=== PATIENT | female | born 1965 | race Caucasian/White ===

== ENCOUNTER 2016-10-30 18:38 | Inpatient (IN) | payer OTHER ==
[~2016-10-30] VITALS: Ht 176.5 cm; Wt 123.3 kg
[2016-10-30 19:15] VITALS: BP 132/77; PULSE 95; RESP 20; O2SAT 95
[2016-10-30] MEDS ORDERED: IBUP200C PO (19:29)
[2016-10-30 19:53] VITALS: BP 132/77; PULSE 95; RESP 20; O2SAT 95
--- NOTE | 2016-10-30 19:57 | NUR ---
Admit Received report at 1935 from Carolyn Floyd admit RN after Pt arrived to the floor at 1920 with belongings, and spouse at the bedside. report pain 4/10 throbbing pain her right index finger which was tolerable for her. right index finger is warm to touch and swollen. No IV access at this time. Oriented to room and call light. will continue to monitor.
[2016-10-30] MEDS ORDERED: Ondansetron 2 mg/mL 2 mL Inj IVPUSH PRN (20:20)
[2016-10-30] MEDS: Vancomycin Dose per Pharmacist XX SCH (20:20)
[2016-10-30] MEDS ORDERED: 0.9% Sodium Chloride 1,000 ML IV SCH (20:20)
[2016-10-30] MEDS ORDERED: Polyethylene Glycol (PEG) 17 Gm Powder PO PRN (20:20)
[2016-10-30] MEDS ORDERED: Alum-Mag Hydrox-Simeth 30 mL Suspension PO PRN (20:20)
--- NOTE | 2016-10-30 20:29 | PCM.HPMED ---
Subjective Date of Service Oct 30, 2016 Primary Provider: Admitting Physician: Margarito Mares MD Primary Care Physician: Trina Vega Attending Physician: Margarito Mares MD Admit Status: Direct Admit, 23-Hour Observation, Non-Telemetry Chief Complaint: Right hand redness and swelling History of Present Illness: Patient is a healthy female who cut her right hand 2nd finger on the scale of a lemon tree yesterday while gardening at work. The finger bacame painful and swollen. It improved over night and then became more painful and swollen today. No drainage, fevers or chills. No other problems. She can't flex or extend that finger but can the other ones as well as the thumb. Ortho wants Abx and NPO for possible surgery in AM. She denies any problems with breathing. No hand numbness. Review of Systems: All else reviewed and negative except as noted in H and P. Allergies Coded Allergies: meperidine (Verified Allergy, Unknown, 09/08/14) Home Medications None PMH None Surgical History Tubal ligation Family History Adopted. Social History Occupation: works with [employer] Hx Alcohol Use: Yes (very occasionally ) Hx Substance Use: No Smoking Status: Current Every Day Smoker Living Arrangement: with Family Exam Vital Signs Vital Sign - Last Date Time Temp Pulse Resp B/P Pulse Ox O2 Delivery O2 Flow Rate FiO2 10/30/16 19:15 36.4 95 20 132/77 95 Room Air Exam Alert and oriented , fluent speech Normal skull, nose and eas Normal mouth, no droop Normal neck, thyroid, no adenopathy Lungs clear with normal rate Heart reg with 3/6 SM (chronic) Abdomen soft, NT No leg edema No skin rash, ecchymosis Normal joints normal muscle strength right hand, 2nd finger swollen and the PIP in large and tender. Pain with passive extension. Lab and Diagnostics Labs pending Assessment & Plan 1. Right hand cellulitis verses 2nd digit septic tenosynovitis, POA. Ceftriaxone , vanco and NPO after midnoc. Ortho consulted for possible surgery in AM. 2. Tobacco dependence, POA. Declines patch. Full code. Obs admit, one night stay anticipated. Pain Evaluation: Adequate Pain Control Resuscitation Status: CPR: Attempt Resuscitation Time spent 35 min Margarito Mares MD Oct 30, 2016 20:29
[2016-10-30] MEDS ORDERED: Vancomycin Inj 2,000 MG in 0.9% Sodium Chloride 500 ML IV ONE (20:35)
--- NOTE | 2016-10-30 21:45 | PCM.CONORT ---
Subjective Surgeon Admitting Provider:Margarito Mares MD Attending Provider:Margarito Mares MD Primary Care Physician:Trina Vega Other Provider: Reason for Consultation: right 2nd finger pain and swelling Allergy Allergies: Coded Allergies: meperidine (Verified Allergy, Unknown, 09/08/14) Medications Ibuprofen (Ibuprofen) 200 Mg Capsule 200 MG PO QID PRN PRN For Pain (Reported) Last Taken: Unknown Dose on 10/30/16 History History of ENT Problems?: No Hx of Heart Problems?: Yes Cardiovascular History: Positive for:: Heart Murmur Denies:: Cardiac Surgery Chest Pain Congestive Heart Failure Edema Hypertension Irregular Heartbeat Pacemaker Thrombophlebitis Hx of Respiratory Problem?: Yes Respiratory History: Positive for:: Pneumonia (2011) Denies:: Asthma COPD Chest Surgery Dyspnea Tuberculosis Neurological History: Positive for:: Headaches ("once in a while") Hx of GI Problems?: No Gastrointestinal History: Denies:: Diverticulitis Gastroesphageal Reflux Gastrointestinal Bleeding Heartburn Hepatitis Hiatal Hernia Rectal Bleeding Hx of Problems?: Yes Genitourinary History: Positive for:: Urinary Tract Infection Female Hx: Denies:: Currently Endometriosis Pelvic Inflammatory Problems with Breasts? Hx Musculoskeletal Problems?: Yes Musculoskeletal History: Positive for:: Back Injury ("herniated disc") Denies:: Joint Replacement Musculoskeletal Trauma Other History/Comment Yasmine Mcfadden is a 50 year old female who reports right 2nd finger pain with swelling when she poked her finger on a thorn on a lemon tree yesterday afternoon while gardening at work. The finger bacame painful and swollen. She reports improved pain and swelling over night which then became more painful and swollen today. She denies any drainage, fevers or chills. She reports that she smokes 1/2-1 PPD. She reports that rest makes her pain better and movement makes it worse. She reports that cannot flex or extend her index. She went to urgent care and was admitted for IV Abx and possible I+D if not improved tomorrow. Hx of Psycho/Social Problems?: No Psycho Social History: Denies:: Anxiety Bipolar Disorder Hx Depression Suicide Attempt Hx Surgeries?: Yes (decor veins) Hx Any Other Health Problems?: Yes Other History: Denies:: Cancer Hospitalization Thyroid Disease History Blood Transfusions: Positive for:: Accept Blood Products? Denies:: Blood Transfusions Hx Diabetes: No Occupation: works with [employer] Alcohol Use: Yes (very occasionally )Hx Substance Use: No Smoking Status: Current Every Day Smoker Have You Smoked inLast 12 mo: YesApprox How Many Cigarettes/day: 1/2 to 3/4 pack per day Objective Exam Vital Signs & I/O Vital Sign- Last 8 Hours Date Time Temp Pulse Resp B/P Pulse Ox O2 Delivery O2 Flow Rate FiO2 10/30/16 19:15 36.4 95 20 132/77 95 Room Air Lab & Micro Results Laboratory Tests Test 10/30/16 21:30 Review of Systems: Constitutional: Negative, except as otherwise mentioned in the history above. Ophthalmologic: Negative, except as otherwise mentioned in the history above. Cardiovascular: Negative, except as otherwise mentioned in the history above. Respiratory: Negative, except as otherwise mentioned in the history above. Gastrointestinal: Negative, except as otherwise mentioned in the history above. Genitourinary: Negative, except as otherwise mentioned in the history above. Musculoskeletal: Negative, except as otherwise mentioned in the history above. Neurological: Negative, except as otherwise mentioned in the history above. Psychiatric: Negative, except as otherwise mentioned in the history above. Hematologic/Lymphatic: Negative, except as otherwise mentioned in the history above. Allergic/Immunologic: Negative, except as otherwise mentioned in the history above. H&P Surgical Exam Exam Musculoskeletal: CONST: WD,WN, NAD, A+OX3 OCULAR: EOMI, no conjunctivitis/icterus ENT: no deformities, scars or lesions CARDIAC: Pulse is regular. No cyanosis,clubbing,edema RESP: regular,unlabored MSK: normal light touch median, ulnar, radial, lateral antebrachial, axillary nerve distribution. Intact AIN, PIN, u, r, ax motor. C5-T1 intact, 2+ r/u pulse Right hand - scars, -discoloration/temp, + swelling at PIP, DIP, distal palm, - atrophy or asymmetry, - cascade sign, no global ligamentous laxity, TTP second finger, semiflexed posture, pain with extension, fusiform swelling ROM R Ext-flex Resisted Strength/Pain 15-40 MCP 4/5 / + 30-40 PIP 4/5 / + 0-0 DIP 4/5 / + 60 -60 Wrist 5/5 / - 50 deg of radioulnar arc + painful arc Additional Information xray of right hand: Soft tissue swelling in the proximal index finger which may be secondary to soft tissue contusion or infection. No opaque foreign body. No bony injuries. H&P Preop Plan Impression right 2nd finger swelling, likely flexor tenosynovitis Problems: Risks & Benefits * We have reviewed the risks and benefits as well as the alternatives to surgery. All questions were answered to the patient's satisfaction and a counseling note to that effect. The patient has provided informed consent. * I have counseled the patient regarding the deleterious effects that smoking during the perioperative period can have upon wound healing, infection rates, and the overall rate of complications. Plan plan for IV abx X 24 hours, will reassess with serial examinations for possible I+D if not improved CHARLENE [facility] discussed importance of smoking cessation recommend xrays of right hand and MRI with contrast continue medical management per primary please call with questions NPO after midnight for possible I+D in AM Conrad Hopkins MD Oct 30, 2016 21:45
--- NOTE | 2016-10-30 22:53 | PCM.PHAPRO ---
Progress Date of Service: Oct 30, 2016 Right hand redness and swelling Vancomycin Management Per Pharmacy: Indication: Right Hand Cellulitis vs. 2nd digit tenosynovitis Goal Trough: 10-15 mg/dL Labs: WBC: no lab SrCr: 0.92 mg/dL Est CrCl: ~80 mL/min Vitals: All stable Nephrotoxic medications: Advil PRN outpatient Micro: None Additional Abx: Rocephin Recommendation: Load: Vancomycin 2000 mg IV x 1 given in ED Maintenance: Vancomycin 1250 mg IV Q12h (~15 mg/kg adjusted body weight) Trough: Draw on 11/01 @ 1930 Pharmacy to continue to monitor Thank You, Debbi Wall, Pharm D. Debbi Wall Oct 30, 2016 22:53
[2016-10-30 23:15] VITALS: BP 125/72; PULSE 74; RESP 18; O2SAT 96
[2016-10-30] MEDS: cefTRIAXone Inj 1,000 MG in Dextrose 5% Minibag Plus 50 ML IV SCH (23:49)
[2016-10-31 02:44] VITALS: BP 96/54; PULSE 61; RESP 18; O2SAT 100
[2016-10-31 05:58] VITALS: BP 109/72; PULSE 72; RESP 18; O2SAT 96
--- NOTE | 2016-10-31 06:14 | NUR ---
Pain/ Activity pt had 4/10 throbbing pain on her right index finger which was tolerable for her. Right index finger is swollen, warm to touch, and unable to flex/extend it . pt has been ambulating multiple times to the restroom independently with IV pull. gait steady. pt has been NPO after mid-night. VS WNL during this morning. Will continue to monitor.
[2016-10-31] MEDS: Vancomycin Inj 1,250 MG in 0.9% Sodium Chloride 250 ML IV SCH ×2 (08:28→20:17)
[2016-10-31] MEDS: Vancomycin Dose per Pharmacist XX SCH (08:36)
[2016-10-31 08:40] LABS: BASOPHILS % (AUTO) 0.4 % (0-3); EOSINOPHILS % (AUTO) 1.3 % (0-5); MONOCYTES % (AUTO) 10.1 % (4-12); Mean Corpuscular Hemoglobin 30.1 pg (27.0-35.0); Mean Corpuscular Volume 91.2 fL (81-100); NEUTROPHILS % (AUTO) 44.7 % (40-74); Platelet Count 165 bil/L (150-400)
--- NOTE | 2016-10-31 08:42 | NUR ---
POC Surgery at bedside at 0830. To order MR of hand, labs and general diet. To continue IV antibiotics. Pt denies pain, just throbbing. Requesting nicotine patch. Hospitalist sharyn paged to notify of request at 0820.
--- NOTE | 2016-10-31 10:26 | PCM.PNORTH ---
Subjective Date of Service: Oct 31, 2016 Visit Information: Reason for Visit Right Flexor Tenosynovitis Surgery/Surgery Date Post-Op Day # Date of Admission: Oct 30, 2016 at 19:14 Hospital Day # Subjective Patient reports that she has some mildly improved symptoms since yesterday with decreased swelling, but persistent pain. We discussed IV antibiotic versus surgery and she has elected for for 24 hours of advised prior to surgical decision making given improved status Objective Exam Objective CONST: WD,WN, NAD, A+OX3 OCULAR: EOMI, no conjunctivitis/icterus ENT: no deformities, scars or lesions CARDIAC: Pulse is regular. No cyanosis,clubbing,edema RESP: regular,unlabored MSK: normal light touch median, ulnar, radial, lateral antebrachial, axillary nerve distribution. Intact AIN, PIN, u, r, ax motor. C5-T1 intact, 2+ r/u pulse Right hand - scars, -discoloration/temp, + swelling but decreased at PIP, DIP, distal palm, - atrophy or asymmetry, - cascade sign, no global ligamentous laxity, TTP second finger, semiflexed posture, pain with extension, fusiform swelling ROM R Ext-flex Resisted Strength/Pain 10-45 MCP 4/5 / + 25-45 PIP 4/5 / + 0-10 DIP 4/5 / + 60 -60 Wrist 5/5 / - 50 deg of radioulnar arc + painful arc xray of right hand: Soft tissue swelling in the proximal index finger which may be secondary to soft tissue contusion or infection. No opaque foreign body. No bony injuries. Vital Signs and I/O Vital Sign - Last Date Time Temp Pulse Resp B/P Pulse Ox O2 Delivery O2 Flow Rate FiO2 10/31/16 05:58 36.8 72 18 109/72 96 Room Air Intake and Output 10/30/16 10/30/16 10/31/16 Cumulative From/Thru 15:00 23:00 07:00 10/30/16 19:29 - 10/31/16 06:13 Intake Total 1528 ml 1528 ml Output Total 975 ml 975 ml Balance 553 ml 553 ml Intake Oral 400 ml 400 ml IV Total 1128 ml 1128 ml Output Urine Total 975 ml 975 ml # Bowel Movements 0 0 Lab & Micro Results Laboratory Tests Test 10/30/16 21:30 10/31/16 08:00 Hold Purple Top Tube Received (Received) Creatinine 0.91mg/dL (0.57-1.00) 0.75mg/dL (0.57-1.00) Hold [place] Top Tube Received (Received) White Blood Count 5.3th/mm3 (3.8-10.1) Red Blood Count 4.52mil/mm3 (3.90-5.20) Hemoglobin 13.6g/dL (12.0-15.6) Hematocrit 41.2% (35.0-46.0) Mean Corpuscular Volume 91.2fL (81-100) Mean Corpuscular Hemoglobin 30.1pg (27.0-35.0) Mean Corpuscular Hemoglobin Concent 33.0% (32.0-37.0) Red Cell Distribution Width 13.6% (12.3-15.4) Platelet Count 165bil/L (150-400) Neutrophils (%) (Auto) 44.7% (40-74) Lymphocytes (%) (Auto) 43.3% (14-46) Monocytes (%) (Auto) 10.1% (4-12) Eosinophils (%) (Auto) 1.3% (0-5) Basophils (%) (Auto) 0.4% (0-3) Sodium Level 139mEq/L (134-144) Potassium Level 4.4mEq/L (3.5-5.2) Chloride Level 106mEq/L (97-108) Carbon Dioxide Level 19mmol/L (18-29) Blood Urea Nitrogen 9mg/dL (6-24) Estimat Glomerular Filtration Rate 117mL/min (>59) Glucose Level 93mg/dL (60-99) Calcium Level 9.1mg/dL (8.5-10.1) Total Bilirubin 0.6mg/dL (0.0-1.2) Aspartate Amino Transf (AST/SGOT) 20U/L (0-50) Alanine Aminotransferase (ALT/SGPT) 27U/L (0-32) Alkaline Phosphatase 76U/L (25-150) Total Protein 6.6g/dL (6.4-8.4) Albumin 3.7g/dL (3.4-5.0) Microbiology 10/30/16 Blood Culture, Received Pending 10/31/16 MRSA (PCR) - Preliminary, Resulted Result Diagram: 10/31/16 0800 10/31/16 0800 Assessment & Plan Impression right 2nd finger swelling, likely flexor tenosynovitis Problems: Plan plan for IV abx X 24 hours, will reassess with serial examinations for possible I+D if not improved tomorrow NWB RUE regular diet today discussed importance of smoking cessation recommend MRI with contrast, labs ordered continue medical management per primary please call with questions NPO after midnight for possible I+D tomorrow Resuscitation Status: CPR: Attempt Resuscitation Conrad Hopkins MD Oct 31, 2016 10:21
--- NOTE | 2016-10-31 10:51 | NUR ---
Activity Pt up ambulatory in room, tolerating well.
[2016-10-31 15:18] VITALS: BP 116/77; PULSE 71; RESP 20; O2SAT 100
--- NOTE | 2016-10-31 15:27 | DRSVH ---
PROCEDURE: MRI HAND RIGHT WITH AND WITHOUT CONTRAST ([id number]) INDICATIONS: right 2nd finger swelling TECHNIQUE: Noncontrast coronal T1 spin echo and T2 fast spin echo with fat saturation, axial proton density fast spin echo and T2 fast spin echo with fat saturation, axial T1 spin echo with fat saturation, sagitta l T1 spin echo and STIR through the hand and fingers. Post-contrast axial, coronal, and sagittal T1 spin echo through the hand and fingers. COMPARISON: [facility], CR, XR FINGER(S) RT 2VW, 10/30/2016, 16:37. FINDINGS: Image quality: Diagnostic. Bones: There is no acute fracture or dislocation involving the osseous structures of the right hand. No suspicious osseous lesions or suspicious osseous enhancement is evident. Specifically, there is no abnormal enhancement of the bone involving the index finger. There are mild to moderate degenerat aminata changes noted involving the wrist joint, which are not well characterized on this examination and more prominent involving the basal joints of the thumb. Additional degenerative changes involving t he metacarpal phalangeal joints of the hand are noted. Evaluation of the interphalangeal joints is s uboptimal on this study. Soft tissues: Prominent soft tissue edema is noted involving the index finger. There are no loculate d or drainable fluid collections present. Corresponding soft tissue enhancement at the site of the e melonie is present. The soft tissue edema is most pronounced at the proximal interphalangeal joint of t he index finger along the volar surface. The underlying flexor tendon is intact, but contains a smal l amount of fluid and demonstrates mild to moderate enhancement of the synovium on the postcontrast i mages. The extensor tendons of the index finger are within normal limits. The ligamentous structure s of the index finger and not adequately evaluated on this examination, but are probably intact. The remainder of the soft tissues of the hand are otherwise within normal limits. There are no soft tissue masses or suspicious enhancement. The remainder of the flexor and extensor tendons of the rogers d are within normal limits. Please note that the ligamentous structures are not well characterized o n this study. IMPRESSION: 1. Moderate right index finger flexor digitorum profundus and superficialis tenosynovitis without si gnificant tearing of these tendons. 2. Subcutaneous edema about the right index finger may represent cellulitis. There is no abscess or drainable fluid collection. 3. No evidence of osteomyelitis. 4. Degenerative changes of the wrist and hand are more prominent involving the basal joints of the t humb. Dictated by: Reji Mehta M.D. on 10/31/2016 at 14:19 Approved by: Reji Mehta M.D. on 10/31/2016 at 14:26
--- NOTE | 2016-10-31 15:50 | NUR ---
Social Work Note - Screening: D/A: The Pt is a 50 y/o female that was admitted under observation status for right flexor tenosynovitis. Her PCP is STEPHANIE Vega and her insurance is listed as the [facility]. EMR reviewed. SW met with the Pt and her to explain role and discuss discharge planning, SW telephone written on white board. The Pt lives independently with her family in [place]. The Pt does not have an Advanced Directive, declined paperwork. Ortho involved. The Pt is currently on 24 hours of IV Abx. Surgery to re-evaluate tomorrow. The Pt denies any needs at this time. SW to follow if needs arise. P: The Pt is not medically stable for discharge. The Pt is currently on 24 hours of IV Abx, Surgery to re-evaluate tomorrow. Coretta Randolph MSW Certified Lactation Educator MIKE Bynum
--- NOTE | 2016-10-31 18:21 | PCM.PNMED ---
Subjective Date of Service Oct 31, 2016 Subjective No complaints chest pain, dyspnea, nausea vomiting. Pain in her and is controlled she feels like the swelling is a little bit better Exam Vital Signs Vital Sign - Last Date Time Temp Pulse Resp B/P Pulse Ox O2 Delivery O2 Flow Rate FiO2 10/31/16 15:18 36.6 71 20 116/77 100 Room Air Intake and Output 10/30/16 10/30/16 10/31/16 Cumulative From/Thru 15:00 23:00 07:00 10/30/16 19:29 - 10/31/16 06:13 Intake Total 1528 ml 1528 ml Output Total 975 ml 975 ml Balance 553 ml 553 ml Intake Oral 400 ml 400 ml IV Total 1128 ml 1128 ml Output Urine Total 975 ml 975 ml # Bowel Movements 0 0 Exam Gen.- A+ O 3 no apparent distress. Obese female lying in bed Eyes- open conjunctiva clear, pupils equal nonicteric ENT- ears normal, nose normal Neck- supple/trach midline CVS-normal rate Lungs-normal right nonlabored no accessory muscles GI-generous pannus Musc- moving 4 no obvious deformity- left hand is markedly edematous but not particularly erythematous reports it has improved Neuro- cranial nerves II through XII intact to gross examination, nonfocal Skin- warm and dry, no rashes/lesions/wounds noted Psych- pleasant and appropriate, Lab and Diagnostics Result Diagram: 10/31/16 0800 10/31/16 0800 Assessment & Plan 50-year-old female with a cut on her hand otherwise healthy. 10/31 orthopedics is following, continuing antibiotics we will reevaluate and decide whether to do I&D 11/01 in the evening. No changes to management. 1. Right hand cellulitis verses 2nd digit septic tenosynovitis, POA. Ceftriaxone , vanco and NPO after midnoc. Ortho consulted for possible surgery in AM. 2. Tobacco dependence, POA. Declines patch. Full code. Resuscitation Status: CPR: Attempt Resuscitation Faisal Matson MD Oct 31, 2016 18:21
--- NOTE | 2016-10-31 19:17 | NUR ---
Status 1830 Pt stable, continues to elevate right hand. Ambulating and eating/drinking w/o issue. To continue to monitor.
[2016-10-31] MEDS: cefTRIAXone Inj 1,000 MG in Dextrose 5% Minibag Plus 50 ML IV SCH (21:49)
[2016-10-31 21:55] VITALS: BP 102/61; PULSE 77; RESP 18; O2SAT 98
[2016-11-01] VITALS (10 sets, daily range): BP systolic 108–126; BP diastolic 63–79; PULSE 67–88; RESP 14–18; O2SAT 93–100
--- NOTE | 2016-11-01 05:24 | NUR ---
Swelling/Activity pt state right index finger had improvement in swelling during the day time yesterday, but swelling back again during the evening. This morning swelling looks better than earlier in the shift. pt able to mildly flex and extend that finger. pain throbbing only, which was tolerable for pt. ABX given per order. pt has been ambulating to the bathroom independently. gait steady. pt has been NPO after mid-night. will continue to monitor.
[2016-11-01] MEDS: Vancomycin Dose per Pharmacist XX SCH (07:52)
[2016-11-01] MEDS: Vancomycin Inj 1,250 MG in 0.9% Sodium Chloride 250 ML IV SCH ×2 (08:01→20:26)
--- NOTE | 2016-11-01 09:45 | PCM.PNORTH ---
Subjective Date of Service: Nov 01, 2016 Visit Information: Reason for Visit Right Flexor Tenosynovitis Surgery/Surgery Date Post-Op Day # Date of Admission: Oct 30, 2016 at 19:14 Hospital Day # Subjective Found patient awake and alert and sitting up in bed in no acute distress. Discussed her condition at the right hand and she states that it is still painful and she does have reduced range of motion on examination with tenderness at the volar surface of the right index finger. Postop General: No Complaints, No Shortness of Breath, No Chest Pain, Good Appetite Objective Exam Objective Alert and oriented 3 and pleasant. No dressing in place at the right hand. No obvious wound at the injury point in the volar crease of the right index PIP joint. Reduced range of motion in flexion and extension at the index finger with general swelling about the hand. No erythema is noted. Tenderness to palpation about the volar index finger on the right hand. Vital Signs and I/O Vital Sign - Last Date Time Temp Pulse Resp B/P Pulse Ox O2 Delivery O2 Flow Rate FiO2 11/01/16 06:08 36.4 67 18 109/63 99 Room Air Intake and Output 10/31/16 10/31/16 11/01/16 Cumulative From/Thru 15:00 23:00 07:00 10/30/16 19:29 - 11/01/16 06:14 Intake Total 550 ml 631 ml 2709 ml Output Total 975 ml Balance 550 ml 631 ml 1734 ml Intake Oral 300 ml 700 ml IV Total 550 ml 331 ml 2009 ml Output Urine Total 975 ml # Voids 3 3 # Bowel Movements 0 0 Lab & Micro Results Microbiology 10/30/16 Blood Culture - Preliminary, Resulted NO GROWTH AFTER 24 HOURS 10/31/16 MRSA (PCR) - Preliminary, Resulted Result Diagram: 10/31/16 0800 10/31/16 0800 General Appearance: Alert, Oriented X3, Cooperative, No Acute Distress Extremities: No Compartment Syndrom Noted, Thigh & Calf Soft/Nontender Postop Sensory Motor: Distal Motor Intact, Movement in Toes, Distal Sensation Intact Catheters: None Assessment & Plan Impression Patient is a very pleasant 50-year-old female who has offered a puncture wound at the right index finger volar surface of the PIP crease from a lemon tree. Patient has swelling and tenderness in this area with reduced range of motion at the finger. She was admitted to the hospital for consideration of an infection and will undergo an I&D of this area today on 10/05/2029. Problems: Plan Post admission day #2 from right index finger lower PIP crease puncture wound from a lemon tree. Continue nonweightbearing at the right upper extremity. Continue nothing by mouth at this time with anticipated I&D of the right index finger today on 11/01/[address] Bautista entered the room while I was seeing patient today and performed an examination and determined that she will in fact undergo an I&D today around noon. Postoperative plans per Dr. Rao: PEDRO will discontinue wick in surgical wound on 11/02/2016 and replace splint with a Xeroform and light gauze dressing at the index finger only. Occupational therapy will be ordered for the patient if she remains in house. Discharge maybe accomplished on postoperative day #1 if patient is doing well. DC on by mouth antibiotics, Keflex 500 4 times a day. DC on by mouth pain medication as needed. Wound may be soaked at home with a mixture of peroxide and saline for 15 minutes daily 3 days postop. Ice and elevate for comfort. Follow-up with Dr. Rao next week on Saturday for wound check. Resuscitation Status: CPR: Attempt Resuscitation Hansel Epperson PA-C Nov 01, 2016 09:45
--- NOTE | 2016-11-01 10:18 | CONS ---
[address] [address] CONSULTATION REPORT PATIENT: DEN MENDEZ : 1965 MR#: [id number] ADMIT: 10/30/2016 JOB ID: [id number] DATE OF SERVICE: 11/01/2016 ORTHOPEDIC CONSULT: CHIEF COMPLAINT: Right index finger pain and swelling. HISTORY OF PRESENT ILLNESS: This is a pleasant 50-year-old, [id number] female that presents with a 2-1/2-day history of right index finger pain and swelling. The patient states this started about Saturday afternoon. She got to the volar aspect of her index finger stuck on a scale of a lemon tree while she was gardening. Finger progressively became increasingly painful and swollen. She eventually presented to the hospital and was started on IV antibiotics to see if there was resolution with 24 hours of IV antibiotics. She did have resolution of the swelling but then it started to recur yesterday evening. She was earlier seen and consulted by Conrad Hopkins MD, and consented for possibility of proceeding with surgery today for irrigation and debridement of the right index finger. The case was discussed with me and transferred over to my care for the surgical procedure. I saw the patient. She currently demonstrates only pain and swelling to the index finger and again, demonstrated that it had worsened overnight. She has very limited range of motion. She denies any paresthesias. She denies any constitutional symptoms including any fever, sweats, or chills. PAST MEDICAL HISTORY: Negative. PAST SURGICAL HISTORY: Tubal ligation, left de Quervain release, mass excised from the face. SOCIAL HISTORY: The patient does smoke a half pack of cigarettes a day. Denies alcohol or illicit drug use. She works in [employer] with [employer]. FAMILY HISTORY: Noncontributory. She is adopted. MEDICATIONS: 1. Ibuprofen. 2. No routine home medications. ALLERGIES: DEMEROL. REVIEW OF SYSTEMS: The patient denies any fevers, sweats, chills, chest pain, shortness of breath, nausea, vomiting, diarrhea. Complains mainly of right index finger pain and swelling as described in history of present illness. PHYSICAL EXAMINATION: General: The patient is alert, in no apparent distress. HEENT: Normocephalic, atraumatic. Extraocular movements intact. Nares patent. Lungs: No audible wheezes. No overt signs of respiratory distress. Neuro: Cranial nerves 2-12 are intact. Extremities: On gross observation of the patient's right index finger, there is a healed small puncture wound along the volar aspect of the PIP joint. There is circumferential swelling to the index finger that extends to the tip. There is tenderness to palpation along the flexor tendon sheath starting at the level of the A1 brandi to about the distal interphalangeal joint. The finger is held in a slightly flexed position. Any passive extension reproduces pain volarly. The finger is perfused, and she does demonstrate intact sensation. DIAGNOSTIC STUDIES: A CBC was obtained on October 31, 2016. Demonstrates a normal white count. The patient did have an MRI also obtained yesterday that demonstrated some tenosynovitis to the index finger flexor digitorum profundus and superficialis, with no localized abscess appreciated. IMPRESSION: Right index finger cellulitis, with questionable flexor tenosynovitis. Discussed with the patient, as well as her , the risks, benefits and indications to proceed with an incision and drainage of the right index finger, as her symptoms have started to worsen despite being on antibiotics for over 24 hours. They understood the risks include, but not limited to, neurovascular injury, tendon injury, failure to resolve the infection, stiffness, persistent pain, all of which may require further intervention. The patient had all questions answered. Consent was signed and placed in the chart. The patient will have the surgery later this afternoon. She will have a splint and a drain placed, and have the splint and drain both pulled on postoperative day #1. I will have her start working with Occupational Therapy at that time. If she demonstrates improvement with clinical findings, she can be discharged home with a pair of p.o. antibiotics. Otherwise, if there is very minimal improvement, we will wait until definitive cultures and sensitivities return prior to transitioning the patient to p.o. antibiotics and discharging her home. Once she is discharged, I will see her back next week either on Saturday or Saturday in the office for a wound recheck.
[2016-11-01] MEDS ORDERED: EPHEDrine Sulfate 50 mg/mL Inj IVPUSH PRN (12:25)
[2016-11-01] MEDS ORDERED: Dexamethasone 4 mg/mL Inj IVPUSH PRN (12:25)
[2016-11-01] MEDS ORDERED: Lactated Ringer's 1,000 ML IV SCH (12:25)
[2016-11-01] MEDS ORDERED: Phenylephrine 10,000 mCg/mL Inj IVPUSH PRN (12:25)
[2016-11-01] MEDS ORDERED: Lactated Ringer's 1,000 ML IV ONE (12:25)
[2016-11-01] MEDS ORDERED: Lactated Ringer's 500 ML IV PRN (12:25)
[2016-11-01] MEDS ORDERED: Ondansetron 2 mg/mL 2 mL Inj IVPUSH PRN (12:25)
[2016-11-01] MEDS ORDERED: fentaNYL-PF 50 mCg/mL 2 mL Inj IVPUSH PRN (12:25)
[2016-11-01] MEDS ORDERED: MetoCLOpramide 5 mg/mL 2 mL Inj IVPUSH PRN (12:25)
--- NOTE | 2016-11-01 12:25 | PCM.HPANE ---
Patient Data Surgeon Admitting Provider:Margarito Mares MD Attending Provider:Margarito Mares MD Primary Care Physician:Trina Vega Other Provider: Reason for Visit Right Flexor Tenosynovitis Ht/WT & BMI Height (Feet): 5 Height (Inches): 9.50 Weight (Kilograms): 123.300 Body Mass Index 39.36 Allergies Coded Allergies: meperidine (Verified Allergy, Unknown, 09/08/14) Past Anesthesia History Anesthesia History: Positive for:: Anesthesia Reactions ( she state " I tought something run over me ") Diabetes History Hx Diabetes?: No MRSA MRSA: No Medications Reported Medications Ibuprofen 200 Mg [id number] Mg PO QID PRN For Pain Ref 0 10/30/16 History History of ENT Problems?: No Hx of Heart Problems?: Yes Cardiovascular History: Positive for:: Heart Murmur Denies:: Cardiac Surgery Chest Pain Congestive Heart Failure Edema Hypertension Irregular Heartbeat Pacemaker Thrombophlebitis Hx of Respiratory Problem?: Yes Respiratory History: Positive for:: Pneumonia (2011) Denies:: Asthma COPD Chest Surgery Dyspnea Tuberculosis Neurological History: Positive for:: Headaches ("once in a while") Hx of GI Problems?: No Gastrointestinal History: Denies:: Diverticulitis Gastroesphageal Reflux Gastrointestinal Bleeding Heartburn Hepatitis Hiatal Hernia Rectal Bleeding Hx of Problems?: Yes Genitourinary History: Positive for:: Urinary Tract Infection Female Hx: Denies:: Currently Endometriosis Pelvic Inflammatory Problems with Breasts? Hx Musculoskeletal Problems?: Yes Musculoskeletal History: Positive for:: Back Injury ("herniated disc") Denies:: Joint Replacement Musculoskeletal Trauma Hx of Psycho/Social Problems?: No Psycho Social History: Denies:: Anxiety Bipolar Disorder Hx Depression Suicide Attempt Hx Surgeries?: Yes (decor veins) Hx Any Other Health Problems?: Yes Other History: Denies:: Cancer Hospitalization Thyroid Disease History Blood Transfusions: Positive for:: Accept Blood Products? Denies:: Blood Transfusions Hx Diabetes: No Occupation: works with [employer] Alcohol Use: Yes (very occasionally )Hx Substance Use: No Smoking Status: Current Every Day Smoker Have You Smoked inLast 12 mo: YesApprox How Many Cigarettes/day: 1/2 to 3/4 pack per day Stop/Bang Treated for Sleep Apnea?: No S-Snoring: Do You Snore Loudly: Yes T-Tired: feel tired, fatigued: Yes O-Obsered: Observed not breath: No P-Blood Pressure: treated: No B- Body Mass Index > 35 kg/m2: Yes A- Age over 50: Yes N- Neck Large Circumference: No G- Gender Male: No GIANNA Total Score: 4 Risk Assessment Category Category 1A: Patient has history of documented sleep apnea, and HAS NOT received any narcotic, sedative or anesthesia administration during this stay. Category 1B: Patient has history of documented sleep apnea, and HAS received any narcotic , sedative or anesthesia administration during this stay Category 2: Patient has SUSPECTED Obstructive Sleep Apnea, and HAS received any narcotic , sedative or anesthesia administration during this stay. Category 3: Patient has SUSPECTED Obstructive Sleep Apnea and HAS NOT received narcotic, sedative or anesthesia administration during this stay. Category 4: Outpatient in Procedural Areas with known sleep apnea or who screen positive for High Risk via the STOP/BANG questionnaire. Exam Exam Vital Signs Vital Signs Date Time Temp Pulse Resp B/P Pulse Ox O2 Delivery O2 Flow Rate FiO2 11/01/16 06:08 36.4 67 18 109/63 99 Room Air General Appearance: Alert HEENT/AIRWAY: MP 2 Lungs: Clear to Auscultation Heart: Exam Unremarkable Meds/Labs/Diagnostics Labs Test 10/30/16 21:30 10/31/16 08:00 Hold Purple Top Tube Received (Received) Hold Morelos Top Tube Received (Received) White Blood Count 5.3th/mm3 (3.8-10.1) Red Blood Count 4.52mil/mm3 (3.90-5.20) Hemoglobin 13.6g/dL (12.0-15.6) Hematocrit 41.2% (35.0-46.0) Mean Corpuscular Volume 91.2fL (81-100) Mean Corpuscular Hemoglobin 30.1pg (27.0-35.0) Mean Corpuscular Hemoglobin Concent 33.0% (32.0-37.0) Red Cell Distribution Width 13.6% (12.3-15.4) Platelet Count 165bil/L (150-400) Neutrophils (%) (Auto) 44.7% (40-74) Lymphocytes (%) (Auto) 43.3% (14-46) Monocytes (%) (Auto) 10.1% (4-12) Eosinophils (%) (Auto) 1.3% (0-5) Basophils (%) (Auto) 0.4% (0-3) Sodium Level 139mEq/L (134-144) Potassium Level 4.4mEq/L (3.5-5.2) Chloride Level 106mEq/L (97-108) Carbon Dioxide Level 19mmol/L (18-29) Blood Urea Nitrogen 9mg/dL (6-24) Creatinine 0.75mg/dL (0.57-1.00) Estimat Glomerular Filtration Rate 117mL/min (>59) Glucose Level 93mg/dL (60-99) Calcium Level 9.1mg/dL (8.5-10.1) Total Bilirubin 0.6mg/dL (0.0-1.2) Aspartate Amino Transf (AST/SGOT) 20U/L (0-50) Alanine Aminotransferase (ALT/SGPT) 27U/L (0-32) Alkaline Phosphatase 76U/L (25-150) Total Protein 6.6g/dL (6.4-8.4) Albumin 3.7g/dL (3.4-5.0) Plan Impression Patient chart reviewed, patient interviewed and anesthestic plan with risks, benefits, and alternatives discussed, and informed consent obtained. ASA Physical Status: ASA2 Mod Systemic Disease Anesthetic Support Modalities: Hemodynamic Monitoring Anesthetic Plan: GA Bene/Risks/Altern/Consents: Yes HP Complete Prior to Induction: Yes Rey Castanon MD Nov 01, 2016 12:24
[2016-11-01] MEDS ORDERED: diphenhydrAMINE 25 mg Capsule PO PRN (12:50)
[2016-11-01] MEDS ORDERED: Lidocaine 1%-Epi 1:100,000 20 mL Inj NERVEBLOCK ONE (12:59)
--- NOTE | 2016-11-01 13:38 | PCM.ANEP1 ---
Post Anesthesia Phase 1 PACU Phase 1 Assessment Date of Service: Oct 30, 2016 Vital Signs Vital Signs Date Time Temp Pulse Resp B/P Pulse Ox O2 Delivery O2 Flow Rate FiO2 11/01/16 06:08 36.4 67 18 109/63 99 Room Air Anesthetic Administered: GA Level of Alertness: Awake, talking CELESTE's with Equal Strength: Yes Pain: No Nausea or Vomiting: No Airway Device: Oralpharangeal Airway Oxygen Delivery: Simple Mask Lungs: Clear to Auscultation Dermatome Level: Full Sensation Early,Rey Callejas MD Nov 01, 2016 13:38
--- NOTE | 2016-11-01 13:38 | PCM.ANEP2 ---
Post Anesthesia Evaluation ASA/CMS Post Anesthesia VS in Patient's Normal Range?: Yes Resp Stable; Airway Patent?: Yes CV Function & Hydration Stable: Yes Mental Status Recovered?: Yes Pain control Satisfactory?: Yes N/V Control Satisfactory?: Yes Early,Rey Callejas MD Nov 01, 2016 13:38
[2016-11-01] MEDS: HYDROmorphone 1 mg/mL Inj IVPUSH PRN ×2 (13:42→13:52)
[2016-11-01] MEDS ORDERED: Propofol 10,000 mCg/mL 20 mL Inj ONE (13:59)
[2016-11-01] MEDS ORDERED: fentaNYL-PF 50 mCg/mL 2 mL Inj ONE (13:59)
[2016-11-01] MEDS ORDERED: Ondansetron 2 mg/mL 2 mL Inj ONE (13:59)
--- NOTE | 2016-11-01 14:34 | NUR ---
Post op/ arrival to unit Pt arrived on the unit at 1415. She was able to stand and transfer herself to bed with a 1 pa contact guard assist. She reports feeling dizzy. She was assisted to the bedside commode and voided. Vital signs were checked, oxygen saturation was 88% on RA, encouraged deep breathing and put pt on 2L supplemental O2. Pt is saline locked. R hand had dressing on and was jose martin wrapped, dressing was clean/dry/intact. Pt reports pain "5/10" in her R hand and describes it as "throbbing". Will administer pain medication and continue to monitor.
[2016-11-01] MEDS: HYDROcodone-APAP 5-325 mg Tablet PO PRN ×3 (14:42→22:40)
--- NOTE | 2016-11-01 14:49 | OP ---
[address] [address] OPERATIVE REPORT PATIENT: DEN MENDEZ : 1965 MR#: [id number] ADMIT: 10/30/2016 JOB ID: [id number] DATE OF SURGERY: 11/01/2016 PREOPERATIVE DIAGNOSIS(ES): Right index finger flexor tenosynovitis. POSTOPERATIVE DIAGNOSIS(ES): Right index finger flexor tenosynovitis. PROCEDURE: Right index finger irrigation and debridement with tenosynovectomy. SURGEON: Daniel Rao DO ANESTHESIA: General. INDICATIONS: The patient is a pleasant 50-year-old female that sustained a puncture wound to the volar aspect of her index finger a few days prior while at work, working outside doing some pruning. She progressively has some increased swelling and pain with limited motion to the index finger. She presented to the hospital and started on 24 hours of IV antibiotics. She did have some improvement, but then it progressively worsened. She was really originally seen by Montez Hopkins MD, and then transferred to [place] for further evaluation and treatment. Upon presentation, the patient demonstrated swelling as well as pain along the volar aspect of the index finger along the flexor tendon sheath. I discussed with the patient the risks, benefits, and indications to proceed with incision and drainage of the right index finger. She understood the risks include, but not limited to, neurovascular injury, tendon injury, failure to resolve the infection, stiffness, persistent pain, and ultimately may require further intervention. The patient had all questions answered. Consent was signed and placed in chart. PROCEDURE IN DETAIL: The patient was brought to the operative suite and placed supine on the operating table. Surgical time-out was performed. Everyone in the room was in agreement. After appropriate anesthesia was obtained, a right upper arm tourniquet was applied and the right upper extremity prepped and draped in a sterile fashion. Right upper extremity was then elevated and tourniquet inflated to 250 mmHg. A Nicolette type incision was made overlying the second metacarpophalangeal joint extending to the level of the proximal interphalangeal joint. Dissection was carried down to the flexor tendon sheath. There was some mild murky fluid emanating from the wound. The flexor tendon sheath was opened by incising the A1 brandi in line with the underlying flexor tendons. The flexor tendons were evaluated. No purulence was appreciated. There was significant tenosynovitis surrounding the FDP and the FDS. Tenosynovectomy was then performed. A second incision was made at the level of the A3 brandi, and again only a small amount of murky fluid emanated without any evidence of purulence. Cultures were obtained to the deep wound of the index finger. Copious irrigation was then performed followed by closure of the skin after placing a quarter-inch iodoform gauze with nylon. The patient was then placed into a bulky soft dressing reinforced with a volar resting splint. ESTIMATED BLOOD LOSS: Less than 1 cc. COMPLICATIONS: None. DISPOSITION: The patient tolerated the procedure well. Anesthesia was reversed. The patient was transferred back to recovery. SPECIMENS: A culture obtained in the right index finger wound sent for aerobic and anaerobic cultures as well as Gram stain. POSTOPERATIVE PLAN: The patient is to keep her hand elevated and iced overnight. Tomorrow, she will have the splint as well as the drain pulled and have her start working on range of motion to the fingers. She will be discharged home with p.o. antibiotics consisting of Keflex 500 mg one p.o. q.i.d. I will see her back next Saturday or Saturday for a wound recheck. In the meantime, she is also to work with occupational therapy for range of motion and edema control.
[2016-11-01] MEDS: Sodium Chloride LOK Flush 10 mL Syringe IV SCH (16:30)
--- NOTE | 2016-11-01 16:38 | PCM.PNMED ---
Subjective Date of Service Nov 01, 2016 Subjective Hand swelling on and off again, intermittently gets better then worse. No chest pain, dyspnea, nausea vomiting. She is anxious to get home today as her son is arriving from [place] this evening driving. Exam Vital Signs Vital Sign - Last Date Time Temp Pulse Resp B/P Pulse Ox O2 Delivery O2 Flow Rate FiO2 11/01/16 14:33 36.7 70 14 116/64 93 Nasal Cannula 2.00 Intake and Output 10/31/16 10/31/16 11/01/16 Cumulative From/Thru 15:00 23:00 07:00 10/30/16 19:29 - 11/01/16 06:14 Intake Total 550 ml 631 ml 2709 ml Output Total 975 ml Balance 550 ml 631 ml 1734 ml Intake Oral 300 ml 700 ml IV Total 550 ml 331 ml 2009 ml Output Urine Total 975 ml # Voids 3 3 # Bowel Movements 0 0 Exam Gen.- A+ O 3 no apparent distress. Obese female lying in bed Eyes- open conjunctiva clear, pupils equal nonicteric ENT- ears normal, nose normal Neck- supple/trach midline CVS-normal rate Lungs-normal right nonlabored no accessory muscles GI-generous pannus Musc- moving 4 no obvious deformity- left hand is markedly edematous but not particularly erythematous reports it has improved Neuro- cranial nerves II through XII intact to gross examination, nonfocal Skin- warm and dry, no rashes/lesions/wounds noted Psych- pleasant and appropriate, Lab and Diagnostics Result Diagram: 10/31/16 0800 10/31/16 0800 Microbiology Blood cultures from 10/31 Negative thus far And wound cultures no organisms on Gram stain many polys 11/01 X-Rays, CTs and MRIs MRI right hand with and without contrast 1. Moderate right index finger flexor digitorum profundus and superficialis tenosynovitis without significant tearing of these tendons. 2. Subcutaneous edema about the right index finger may represent cellulitis. There is no abscess or drainable fluid collection. 3. No evidence of osteomyelitis. 4. Degenerative changes of the wrist and hand are more prominent involving the basal joints of the thumb. Dictated by: Reji Mehta M.D. on 10/31/2016 at 14:19 Assessment & Plan 50-year-old female with a cut on her hand otherwise healthy. 10/31 orthopedics is following, continuing antibiotics we will reevaluate and decide whether to do I&D 11/01 in the evening. No changes to management. #Right hand cellulitis verses 2nd digit septic tenosynovitis, POA. Ceftriaxone, vanco since 10/31. Richard was elected to take her to the OR today 11/01. -IV antibiotics overnight and then trouble discharge on oral antibiotics as per orthopedics 11/02. #Tobacco dependence, POA. Declines patch. Full code. Resuscitation Status: CPR: Attempt Resuscitation Faisal Matson MD Nov 01, 2016 16:38
[2016-11-01] MEDS ORDERED: Vancomycin Serum Trough XX ONE (19:30)
[2016-11-01] MEDS: Senna-Docusate 8.6-50 mg Tablet PO SCH (20:30)
--- NOTE | 2016-11-01 20:38 | PCM.PHAPRO ---
Progress Date of Service: Nov 01, 2016 Right hand redness and swelling Vancomycin management per pharmacy Indication: right hand cellulitis and 2nd digit tenosynovitis Trough goal: 10-15 Culture info: no growth, MRSA swab neg Trough: 10.6 Trough is within therapeutic range. Continue vancomycin 1250 mg IV Q12H. Pharmacy to continue to monitor and dose vancomycin daily. Thank you, Davy Santiago Pharmacist Davy Santiago Nov 01, 2016 20:38
--- NOTE | 2016-11-01 21:38 | NUR ---
Medication pt declined schedule bowel medication dispute education. pt state she had loose BM the last couple days, so she doesn't want to take them tonight. right hand/finger is warm to couch, normal skin tone, cap.refill <3 seconds. pt able to wiggle right hand fingers. will continue to monitor.
[2016-11-01] MEDS: cefTRIAXone Inj 1,000 MG in Dextrose 5% Minibag Plus 50 ML IV SCH (22:34)
[2016-11-02] MEDS: Sodium Chloride LOK Flush 10 mL Syringe IV SCH ×2 (00:30→09:20)
[2016-11-02 02:16] VITALS: BP 118/76; PULSE 74; RESP 16; O2SAT 97
[2016-11-02] MEDS: HYDROcodone-APAP 5-325 mg Tablet PO PRN ×2 (02:54→06:45)
--- NOTE | 2016-11-02 05:29 | NUR ---
pain, C/S/M Pt c/o 6/10 throbbing pain on her right hand index finger. Administered PRN PO Lorraine. Pt report pain management was effective. right hand/finger is warm to couch, normal skin tone, cap.refill <3 seconds. Pt able to feel this RN touching fingers;able to wiggle right hand fingers. will continue to monitor.
[2016-11-02 06:02] VITALS: BP 106/69; PULSE 65; RESP 16; O2SAT 98
[2016-11-02 06:46] LABS: BASOPHILS % (AUTO) 0.3 % (0-3); EOSINOPHILS % (AUTO) 1.2 % (0-5); MONOCYTES % (AUTO) 8.8 % (4-12); Mean Corpuscular Hemoglobin 30.6 pg (27.0-35.0); Mean Corpuscular Volume 92.4 fL (81-100); NEUTROPHILS % (AUTO) 48.6 % (40-74); Platelet Count 161 bil/L (150-400)
[2016-11-02] MEDS: Senna-Docusate 8.6-50 mg Tablet PO SCH (08:30)
[2016-11-02] MEDS: Vancomycin Dose per Pharmacist XX SCH (08:30)
--- NOTE | 2016-11-02 08:45 | NUR ---
Plan for Discharge PEDRO Hamm with Ortho at bedside, stated he will change patient's dressing now, will increase pain medication and patient should be able to discharge later today.
[2016-11-02] MEDS ORDERED: oxyCODONE-Acetamin 5-325 mg Tablet PO PRN (09:10)
--- NOTE | 2016-11-02 09:29 | PCM.PNORTH ---
Subjective Date of Service: Nov 02, 2016 Visit Information: Reason for Visit Right Flexor Tenosynovitis Surgery/Surgery Date Post-Op Day # Date of Admission: Oct 30, 2016 at 19:14 Hospital Day # Subjective Foundation awake and alert and sitting up in bed. Complains of pain at this time and states that her [place] 5 mg pain medication is not holding her for a full 4 hours. Otherwise patient is prepared to home today and anxious to department. I have changed her dressing this morning and discussed with her how to perform dressing changes until seen in office next week. I will also discussed with her how to do her peroxide and sterile saline wound soaks and I have given her supplies for both of these procedures. I will also told patient that I would order Percocet 5 for her which may be a little stronger and ideally help her pain control. I have asked nursing to administer this this morning and make sure his working me know if it is not prior to discharge. Postop General: No Complaints, No Shortness of Breath, No Chest Pain, Good Appetite Pain Management: PO Objective Exam Objective Alert and oriented 3 and pleasant. Interoperative dressing is clean dry and intact. Interoperative dressing and splint are removed and postoperative light dressing is replaced. Iodoform gauze packing is removed from the volar distal palm portion of the incision with little to no drainage. Range of motion is limited at the index finger at this time secondary to pain and postoperative swelling. Sensation intact at right index finger distally. Vital Signs and I/O Vital Sign - Last Date Time Temp Pulse Resp B/P Pulse Ox O2 Delivery O2 Flow Rate FiO2 11/02/16 06:02 36.6 65 16 106/69 98 Room Air 11/01/16 14:33 2.00 Intake and Output 11/01/16 11/01/16 11/02/16 Cumulative From/Thru 15:00 23:00 07:00 10/30/16 19:29 - 11/02/16 06:46 Intake Total 700 ml 1330 ml 767 ml 5506 ml Output Total 400 ml 1375 ml Balance 700 ml 930 ml 767 ml 4131 ml Intake Oral 1080 ml 400 ml 2180 ml IV Total 700 ml 250 ml 367 ml 3326 ml Output Urine Total 400 ml 1375 ml # Voids 2 4 9 # Bowel Movements 0 Lab & Micro Results Laboratory Tests Test 11/01/16 19:15 11/02/16 06:10 Vancomycin Level Trough 10.6mcg/mL White Blood Count 7.4th/mm3 (3.8-10.1) Red Blood Count 4.58mil/mm3 (3.90-5.20) Hemoglobin 14.0g/dL (12.0-15.6) Hematocrit 42.3% (35.0-46.0) Mean Corpuscular Volume 92.4fL (81-100) Mean Corpuscular Hemoglobin 30.6pg (27.0-35.0) Mean Corpuscular Hemoglobin Concent 33.1% (32.0-37.0) Red Cell Distribution Width 13.2% (12.3-15.4) Platelet Count 161bil/L (150-400) Neutrophils (%) (Auto) 48.6% (40-74) Lymphocytes (%) (Auto) 40.8% (14-46) Monocytes (%) (Auto) 8.8% (4-12) Eosinophils (%) (Auto) 1.2% (0-5) Basophils (%) (Auto) 0.3% (0-3) Creatinine 0.87mg/dL (0.57-1.00) Microbiology 10/30/16 Blood Culture - Preliminary, Resulted No growth at 2 days; culture examined... 10/31/16 MRSA (PCR) - Final, Complete 11/01/16 Gram Stain - Final, Resulted 11/01/16 Culture & Sensitivity, Resulted Pending 11/01/16 Anaerobic Culture, Resulted Pending Result Diagram: 11/02/16 0610 11/02/16 0610 General Appearance: Alert, Oriented X3, Cooperative, Mild Distress Extremities: No Compartment Syndrom Noted Postop Sensory Motor: Distal Motor Intact, Movement in Fingers, Distal Sensation Intact Catheters: None Assessment & Plan Impression Yasmine Ospina is a 50-year-old female seen today 1 day postop from a right index finger and distal palm IND with tenosynovectomy performed on 11/01/[address] Daniel Rao. Patient is in some discomfort this morning but is otherwise doing well and existed discharge to home. Problems: Plan Postop day #1 from right index finger and lower distal palm IND with tenosynovectomy performed on 11/01/[address] Daniel Rao. Nonweightbearing on the right upper extremity. Patient should pursue gentle range of motion at the index finger 3-5 times daily for 5 minutes as described and demonstrated to her this morning. She has been given a hardcopy prescription for formal occupational therapy which should begin as soon as possible after discharge. A hardcopy Rx has been placed in the patient's chart. Continue by mouth pain medication in the form of Percocet 5/325. A hardcopy Rx has been placed in the patient's chart. Begin Keflex 500 mg by mouth 4 times daily for 14 days post discharge. A hardcopy Rx has been placed in chart. Nursing please let me know prior to patient's discharge if Percocet 5/325 is not controlling her pain adequately. Patient should pursue daily 50-50 peroxide and sterile saline soaks at the wound 3 days post discharge. Supplies have been provided to the patient. Patient should change her bandage daily for the first 3 days and then every 1-2 days after that until seen in office. Supplies have been provided to the patient. Keep wound and dressings clean, dry and intact until seen in office. Follow-up on 11/07/2016 or 11/09/[address] Daniel Rao. Discharge to home today on postop day #1, 11/02/2016 with family has caregivers Resuscitation Status: CPR: Attempt Resuscitation Hansel Epperson PA-C Nov 02, 2016 09:29
--- NOTE | 2016-11-02 09:48 | PCM.DIORTH ---
Ortho Discharge Instruction Date of Service: Nov 02, 2016 Dates of Hospitalization Date of Hospital Admission Oct 30, 2016 at 19:14 Providers Admitting Physician: Margarito Mares MD Primary Care Physician: Trina Vega Attending Physician: Margarito Mares MD Diet Discharge Diet: No restrictions Activity Discharge Activity-General: Try not to overdue, Be up and about, Balance rest and activity, Ice incision 3-5 time/day for 20min, Activity as pain allows, No driving while taking narcotic Right Upper Extremity: Non-weight bearing Dressing and Incisional Care Discharge Dressing Care: Keep dressing clean, dry & intact (change dressing daily for first 3 days post discharge to accommodate peroxide and sterile saline soaks. After this change dressing as needed every 1-2 days until seen in office.) Discharge Hygiene: May shower Additional Instructions Discharge Instructions Postop day #1 from right index finger and lower distal palm IND with tenosynovectomy performed on 11/01/[address] Daniel Rao. Nonweightbearing on the right upper extremity. Patient should pursue gentle range of motion at the index finger 3-5 times daily for 5 minutes as described and demonstrated to her this morning. She has been given a hardcopy prescription for formal occupational therapy which should begin as soon as possible after discharge. A hardcopy Rx has been placed in the patient's chart. Continue by mouth pain medication in the form of Percocet 5/325. A hardcopy Rx has been placed in the patient's chart. Begin Keflex 500 mg by mouth 4 times daily for 14 days post discharge. A hardcopy Rx has been placed in chart. Nursing please let me know prior to patient's discharge if Percocet 5/325 is not controlling her pain adequately. Patient should pursue daily 50-50 peroxide and sterile saline soaks at the wound 3 days post discharge. Supplies have been provided to the patient. Patient should change her bandage daily for the first 3 days and then every 1-2 days after that until seen in office. Supplies have been provided to the patient. Keep wound and dressings clean, dry and intact until seen in office. Follow-up on 11/07/2016 or 11/09/[address] Daniel Rao. Discharge to home today on postop day #1, 11/02/2016 with family has caregivers Follow Up Plan Follow Up Plan Follow-up with Dr. Daniel Rao in clinic on 11/07/2016 or 11/09/2016. Follow-up Provider (F9): Daniel Rao DO Follow-up appointment: Days (follow up in 5-[address] Daniel guerrero in clinic on either 11/07/2016 or 11/09/2016.) Call your provider for: Fever, Chills, Shortness of breath, Vomitting, Drainage at incision Hansel Epperson PA-C Nov 02, 2016 09:48
[2016-11-02] MEDS ORDERED: CEPH-512 PO (09:52)
[2016-11-02] MEDS ORDERED: OXYC1TAB24 PO (09:52)
--- NOTE | 2016-11-02 09:57 | PCM.DC.ORT ---
Discharge Summary Date of Service: Nov 02, 2016 Date of Hospital Admission: Oct 30, 2016 at 19:14 Date of Surgery: Nov 01, 2016 Date of Discharge: Nov 02, 2016 Reason for Hospitalization: Right volar index finger and palm infection. Procedures Performed: Right index finger and distal palm I&D with tenosynovectomy. Hospital Course: Patient was admitted to the hospital on 10/30/2016 and diagnosed with a right hand infection. She underwent a right volar hand I&D with tenosynovectomy on by Dr. Daniel Rao. She was subsequently discharged on 11/02/2016 to home with family as caregivers. Problems: (1) Flexor tenosynovitis of finger Status: Acute ICD Code: M65.9 Disposition: Discharged to home with family's caregivers Orthopedic Follow up Plan: In One Week in my clinic (follow-up in 5-7 days in clinic with Dr. Daniel Rao on 11/07/2016 or 11/09/2016.) Discharge Instructions: Nonweightbearing on the right upper extremity. Patient should pursue gentle range of motion at the index finger 3-5 times daily for 5 minutes as described and demonstrated to her this morning. She has been given a hardcopy prescription for formal occupational therapy which should begin as soon as possible after discharge. A hardcopy Rx has been placed in the patient's chart. Continue by mouth pain medication in the form of Percocet 5/325. A hardcopy Rx has been placed in the patient's chart. Begin Keflex 500 mg by mouth 4 times daily for 14 days post discharge. A hardcopy Rx has been placed in chart. Nursing please let me know prior to patient's discharge if Percocet 5/325 is not controlling her pain adequately. Patient should pursue daily 50-50 peroxide and sterile saline soaks at the wound 3 days post discharge. Supplies have been provided to the patient. Patient should change her bandage daily for the first 3 days and then every 1-2 days after that until seen in office. Supplies have been provided to the patient. Keep wound and dressings clean, dry and intact until seen in office. Follow-up on 11/07/2016 or 11/09/[address] Daniel Rao. Discharge to home today on postop day #1, 11/02/2016 with family has caregivers Management Plan: Patient was seen in clinic with Dr. Daniel Rao in 1 week. Cephalexin (Keflex) 500 Mg Capsule 500 MG PO QID oxyCODONE-Acetaminophen 5-325 mg (oxyCODONE-Acetaminophen 5-325 mg) 1 Each Tablet 1 TAB PO Q4-6H PRN PRN For Pain Hansel Epperson PA-C Nov 02, 2016 09:57
[2016-11-02] MEDS: Vancomycin Inj 1,250 MG in 0.9% Sodium Chloride 250 ML IV SCH (11:14)
[2016-11-02 11:21] VITALS: BP 105/70; PULSE 69; RESP 16; O2SAT 94
--- NOTE | 2016-11-02 11:33 | NUR ---
L&I Received phone call from Lucie Goddard with L&I, she inquired about pending discharge, continuing medications and follow up plan, which I provided all of the discharge information to her at this time. She also stated she needed additional information regarding activity status as determined by the physician, I provided contact information for the social worker psychiatric to obtain this information, but asked that she call me back if she was unable to get this information so that patient was not discharged prior to everything being complete for L&I claim.
--- NOTE | 2016-11-02 13:31 | NUR ---
Return to Work Form Contacted Dr. Matson with the following cook page: Patient needs a return to work form completed, as requested by L&I. [place] [facility] [place] you. Debbie [facility] [place] [id number]
--- NOTE | 2016-11-02 13:53 | NUR ---
Discharge Note Patient given all discharge information and instructions, she had no questions at this time. Patient asked that either she take the L&I paperwork home with her or we could fax to Dr. Rao's office, but she did not want to wait for the Hospitalist to come fill out the paperwork. IV discontinued at this time, intact. All belongings gathered by patient and patient's family, transported via wheelchair to waiting vehicle at this time.
== END 2016-11-02 14:00 | disposition home or self-care (01) | DRG 316 ==
LOC: OBSVTOIN 19:14 → MOC 19:14
PROVIDERS: ADMIT Hospitalist; ATTEND Hospitalist
PROC: 0LB70ZZ Excision of Right Hand Tendon, Open Approach (ICD-10-PCS; principal; 2016-11-01 13:30)
DX: M65.141 Other infective (teno)synovitis, right hand (principal); F17.210 Nicotine dependence, cigarettes, uncomplicated; L03.011 Cellulitis of right finger